=== PATIENT | female | born 1960 | race Caucasian/White ===

== ENCOUNTER 2016-09-26 15:45 | Inpatient (IN) | payer MEDICARE ==
[~2016-09-26 15:45] MED LIST: ALLEGRA180 MG PO; GLIPIZIDE ER10 M1 PO; HUMALOG MI100 UNIT/3 SQ; KEFLEX500 M1 PO; METFORMIN HCL1000 MG PO; SIMVASTATIN80 MG PO; VIBRAMYCIN100 MG PO
[2016-09-26] MEDS ORDERED: GLIPIZIDE ER10 MG PO (16:23)
[2016-09-26] MEDS ORDERED: VENTOLIN HFA18 G2 PO (16:23)
[2016-09-26] MEDS ORDERED: MACRODANTIN50 M2 PO (16:23)
[2016-09-26] MEDS ORDERED: AMBIEN5 M1 PO ×2 (16:23→22:11)
[2016-09-26] MEDS ORDERED: DEMADEX20 M1 PO (16:24)
[2016-09-26] MEDS ORDERED: CULTURELLE1 EAC1 PO (16:24)
[2016-09-26] MEDS ORDERED: WELCHOL625 M1 PO (16:24)
[2016-09-26] MEDS ORDERED: SENEXON-S TABL1 EAC1 PO (16:24)
[2016-09-26] MEDS ORDERED: NORVASC5 M2 PO (16:25)
[2016-09-26] MEDS ORDERED: CATAPRES0.1 M1 PO (16:25)
[2016-09-26 17:19] LABS: PROTHROMBIN TIME 11.8 SECONDS (9.0-13.6)
[2016-09-26 17:33] LABS: ALB/GLOB RATIO 0.6 (0.8-2.0); ALBUMIN 2.7 g/dl (3.5-5.0); ALKALINE PHOSPHATASE 131 U/L (33-138); ALT/SGPT 29 U/L (12-78); ANION GAP 13 mmol/L (0-20); AST/SGOT 25 U/L (10-40); BILIRUBIN,TOTAL 0.4 mg/dl (0-1.5); BLOOD UREA NITROGEN 68 mg/dl (6-24); CALCIUM 8.4 mg/dl (8.5-10.5); CARBON DIOXIDE-VENOUS 21 mmol/L (22-32); CHLORIDE 114 mmol/l (96-110); CREATININE 3.56 mg/dl (0.50-1.10); FERRITIN 315 ng/ml (8-250); GLUCOSE 186 mg/dL (70-110); MAGNESIUM 2.2 mg/dl (1.8-2.6); PHOSPHOROUS 4.3 mg/dl (2.5-4.9); POTASSIUM 5.1 mmol/L (3.7-5.1); SODIUM 143 mmol/L (135-145); eGFR VALUE FOR BLACK 15 mL/Min
[2016-09-26 17:39] LABS: IRON 43 ug/dl (37-170); IRON BINDING CAPACITY 294 ug/dl (250-450)
[2016-09-26 17:47] LABS: ABG CO2 ARTERIAL 20 mmol/L (21-27); ARTERIAL BLD GAS O2 SATURATION 92 % (95-98); ARTERIAL BLOOD GAS PCO2 34 mmHg (32-45); ARTERIAL PO2 69 mmHg (70-100); BICARBONATE 19 mmol/L (21-28); BLOOD GAS BASE EXCESS -5 mM/L (-/+3); PH 7.36 Units (7.35-7.45)
[2016-09-26 17:52] LABS: BASO % 0.3 % (0-2); EOS % 7.2 % (0-7); EOSINOPHIL ABSOLUTE COUNT 0.4 tho/cmm (0.0-0.7); HCT-HEMATOCRIT 33.7 % (34.0-49.0); HGB-HEMOGLOBIN 10.8 gm/dl (12.0-15.5); IMMATURE GRANULOCYTES ABSOLUTE 0.04 tho/cmm (0-0.03); IMMATURE GRANULOCYTES PERCENT 0.7 % (0-0.3); LYMPH % 17.8 % (20-45); LYMPH ABSOLUTE COUNT 1.1 tho/cmm (0.8-4.5); MCH (MEAN CORPUSCULAR HGB) 26.3 pg (28.0-32.0); MEAN PLATELET VOLUME 9.3 cmc (9.4-12.4); MONO % 8.8 % (0-12); MONOCYTE ABSOLUTE COUNT 0.5 tho/cmm (0.0-1.2); NEUTROPHILS % 65.2 % (40-80); PLATELET COUNT 247 tho/cmm (150-450); RED BLOOD COUNT 4.11 mil/cmm (4.00-5.20); RED CELL DISTRIBUTION WIDTH 16.9 % (12.4-16.4); WHITE BLOOD COUNT 6.1 tho/cmm (4.0-10.0)
[2016-09-26 18:15] LABS: MAGNESIUM 2.2 mg/dl (1.8-2.6)
[2016-09-26] MEDS ORDERED: HYDRALAZINE HCL50 M1 PO (21:32)
[2016-09-26] MEDS ORDERED: HYDROCODON-ACE1 EA16 PO (21:33)
[2016-09-26] MEDS ORDERED: METOLAZONE2.5 M1 PO (21:34)
[2016-09-26] MEDS ORDERED: SODIUM BICARBO650 M1 PO (21:35)
[2016-09-27 06:40] LABS: ANION GAP 15 mmol/L (0-20); BLOOD UREA NITROGEN 71 mg/dl (6-24); CALCIUM 8.7 mg/dl (8.5-10.5); CARBON DIOXIDE-VENOUS 21 mmol/L (22-32); CHLORIDE 114 mmol/l (96-110); CREATININE 3.49 mg/dl (0.50-1.10); GLUCOSE 104 mg/dL (70-110); POTASSIUM 4.5 mmol/L (3.7-5.1); SODIUM 145 mmol/L (135-145); eGFR VALUE FOR BLACK 16 mL/Min
[2016-09-27] MEDS ORDERED: BYSTOLIC20 M1 PO (10:08)
[2016-09-27] MEDS ORDERED: NOVOLOG100 UNITS/ SC (10:35)
[2016-09-27] MEDS ORDERED: TRESIBA FL100 UNIT/1 SC (10:36)
[2016-09-27] MEDS ORDERED: PROCRIT40000 UNIT SC (10:38)
--- NOTE | 2016-09-27 21:05 | NUR ---
VIRTUAL CARE NOTE: PT. IN BED. STATES IS HAVING PAIN IN HER FEET. OFFERED TO CALL FOR PAIN MEDICATION, REQUESTS TO HAVE IT MORE AT BEDTIME. EDUCATION PROVIDED THAT IF SHE IS NOT TOLERATING THE PAIN TO PLEASE CALL SOONER TO STAY ON TOP OF THE PAIN. DENIES FURTHER QUESTIONS OR NEEDS. INSTRUCTED TO CALL FOR FUTURE NEEDS. STATES VERBAL UNDERSTANDING.
[2016-09-28 05:16] LABS: ALBUMIN 2.5 g/dl (3.5-5.0); ANION GAP 12 mmol/L (0-20); BLOOD UREA NITROGEN 73 mg/dl (6-24); CALCIUM 8.5 mg/dl (8.5-10.5); CARBON DIOXIDE-VENOUS 25 mmol/L (22-32); CHLORIDE 113 mmol/l (96-110); CREATININE 3.86 mg/dl (0.50-1.10); GLUCOSE 99 mg/dL (70-110); PHOSPHOROUS 4.6 mg/dl (2.5-4.9); SODIUM 145 mmol/L (135-145); eGFR VALUE FOR BLACK 14 mL/Min
[2016-09-29 05:49] LABS: ANION GAP 14 mmol/L (0-20); BLOOD UREA NITROGEN 80 mg/dl (6-24); CALCIUM 8.3 mg/dl (8.5-10.5); CARBON DIOXIDE-VENOUS 25 mmol/L (22-32); CHLORIDE 106 mmol/l (96-110); GLUCOSE 236 mg/dL (70-110); MAGNESIUM 2.3 mg/dl (1.8-2.6); POTASSIUM 4.9 mmol/L (3.7-5.1); SODIUM 140 mmol/L (135-145); eGFR VALUE FOR BLACK 13 mL/Min
[2016-09-29] MEDS ORDERED: DO NOT RESUME: (08:47)
[2016-10-25] MEDS ORDERED: LYRICA50 MG/CAP PO (13:07)
[2016-10-25] MEDS ORDERED: VENTOLIN HFA18 G2 INH (17:11)
[2016-10-30] MEDS ORDERED: HYDROCODON-ACE1 EA16 PO (13:54)
[2016-10-30] MEDS ORDERED: CYCLOBENZAPRINE5 M1 PO (13:54)
[2016-10-30] MEDS ORDERED: STOP (14:04)
[2016-11-05] MEDS ORDERED: TYLENOL EXTRA500 M1 PO (06:48)
[2016-11-05] MEDS ORDERED: AMLODIPINE BESYL5 MG PO (06:49)
[2016-11-05] MEDS ORDERED: CLONIDINE HCL0.1 M2 PO (06:50)
[2016-11-05] MEDS ORDERED: SENOKOT-S TABL1 EACH PO (06:51)
[2016-11-05] MEDS ORDERED: TORSEMIDE20 M2 PO (06:51)
[2016-11-05] MEDS ORDERED: SODIUM BICARBO650 M1 PO (09:21)
== END 2016-09-29 13:10 | DRG 292 ==
LOC: 5WD 15:45
PROVIDERS: Internal Medicine Nephrology; ADMIT Internal Medicine
DX: I13.0 Hypertensive heart and chronic kidney disease with heart failure and stage 1 through stage 4 chronic kidney disease, or unspecified chronic kidney disease (principal); N17.8 Other acute kidney failure; J96.11 Chronic respiratory failure with hypoxia; E87.2 Acidosis; N18.4 Chronic kidney disease, stage 4 (severe); I27.2 Other secondary pulmonary hypertension; S21.109A Unspecified open wound of unspecified front wall of thorax without penetration into thoracic cavity, initial encounter; E11.22 Type 2 diabetes mellitus with diabetic chronic kidney disease; I50.32 Chronic diastolic (congestive) heart failure; E78.5 Hyperlipidemia, unspecified; E11.40 Type 2 diabetes mellitus with diabetic neuropathy, unspecified; Z79.84 Long term (current) use of oral hypoglycemic drugs; G47.33 Obstructive sleep apnea (adult) (pediatric); Z99.89 Dependence on other enabling machines and devices; E66.01 Morbid (severe) obesity due to excess calories; Z68.37 Body mass index [BMI] 37.0-37.9, adult; J44.9 Chronic obstructive pulmonary disease, unspecified; D63.1 Anemia in chronic kidney disease; F32.9 Major depressive disorder, single episode, unspecified; R63.4 Abnormal weight loss; D50.9 Iron deficiency anemia, unspecified; Z88.2 Allergy status to sulfonamides; Z88.6 Allergy status to analgesic agent; Z88.8 Allergy status to other drugs, medicaments and biological substances; Z88.1 Allergy status to other antibiotic agents; Z23 Encounter for immunization
CPT/HCPCS: G0009; J1756; J1815; J1940